=== PATIENT | male | born 1970 | race Two or more races ===

== ENCOUNTER 2020-03-15 11:27 | Emergency (ER) | payer OTHER ==
[~2020-03-15] VITALS: Ht 170.2 cm; Wt 68.0 kg
== END 2020-03-15 15:00 | disposition home or self-care (01) ==
LOC: ER 11:27
DX: H05.011 Cellulitis of right orbit (principal); H05.221 Edema of right orbit; T63.444A Toxic effect of venom of bees, undetermined, initial encounter; Y92.89 Other specified places as the place of occurrence of the external cause